=== PATIENT | male | born 1995 | race Caucasian/White ===

== ENCOUNTER 2016-08-12 14:44 | Emergency (ER) ==
[2016-08-12] MEDS ORDERED: SODIUM CHLORIDE 1,000 ML IV STA (14:57)
[2016-08-12 14:59] VITALS: BP 127/73; TEMP 97.3; BMI 25.6
--- NOTE | 2016-08-12 15:30 | ED.PDOC ---
General ED Provider: Dr. LANDRY ELIZONDO Chief Complaint: Shortness of Air Stated Complaint: Patient complains of feeling dizzy while he was doing a workout and got heart rate faster than anticipated. says he has been having some dull chest pain at night with a rapid heart rate for abot 2 months. says he feels like he is sort of "panicing" and gets light headed and feels like he is going to pass out, Admits to drinking a Preworkout which he states was the strongest one. Time Seen by Physician: 15:26 Mode of Arrival: Walk-In Information Source: Patient Exam Limitations: No limitations Nursing and Triage Documentation Reviewed and Agree: Yes Cardiovascular Complaint Exam - Palpitations Complaint/Exam Onset/Duration: 1 day Symptoms Are: Still present Timing: Constant Initial Severity: Severe Current Severity: Mild Character: Reports: Fast Aggravating: Reports: Medications (suppliment drink ) Alleviating: Reports: None Associated Signs and Symptoms: Reports: Lightheadedness, Dizziness Related Surgical History: Reports: None Cardiac Risk Factors: Reports: None Pulmonary Embolism Risk Factors: Reports: None Atrial Fibrillation Risk Factors: Reports: None Thyroid Exam: Normal Differential Diagnoses: AV Block, Pericarditis, Panic Disorder, Paroxysmal SVT Quality Indicators for AMI: EKG in 10min. Quality Indicator For Non-Traumatic Chest Pain/Syncope: EKG Performed Review of Systems - Review Of Systems Constitutional: Reports: No symptoms Eyes: Reports: No symptoms Ears, Nose, Mouth, Throat: Reports: No symptoms Respiratory: Reports: No symptoms Cardiac: Reports: Palpitations GI: Reports: No symptoms : Reports: No symptoms Musculoskeletal: Reports: No symptoms Skin: Reports: No symptoms Neurological: Reports: Anxiety Endocrine: Reports: No symptoms Hematologic/Lymphatic: Reports: No symptoms All Other Systems: Reviewed and Negative Past Medical History - Past Medical History Endocrine: Reports: None Cardiovascular: Reports: None Respiratory: Reports: None Hematological: Reports: None Gastrointestinal: Reports: None Genitourinary: Reports: None Neuro/Psych: Reports: None Musculoskeletal: Reports: None Cancer: Reports: None - Surgical History General Surgical History: Reports: None - Family History Family History: Reports: None - Social History Smoking Status: Never smoker Hx Substance Use: No Alcohol Screening: None - Immunizations Tetanus Shot up to Date: Yes Physical Exam - Physical Exam Appearance: Ill-appearing, No pain distress, Well-nourished Ill-appearing: Mild Eyes: BEBETO, EOMI, Conjunctiva clear ENT: Ears normal, Nose normal, Oropharynx normal Respiratory: Airway patent, Breath sounds clear, Breath sounds equal, Respirations nonlabored Cardiovascular: RRR, Pulses normal, No rub, No murmur GI/: Soft, Nontender, No masses, Bowel sounds normal, No Organomegaly Musculoskeletal: Normal strength, ROM intact, No edema, No calf tenderness Skin: Warm, Dry, Normal color Neurological: Sensation intact, Motor intact, Reflexes intact, Cranial nerves intact, Alert, Oriented Psychiatric: Anxious Interpretation - Dietary Director Rate: Normal Rhythm: Sinus Ectopy: PVCs (few), PACs (few) - EKG Interpretation Time of EKG #1: 15:08 Rate: Normal Rhythm: Sinus Ectopy: None [place]: NL ST Segment: Normal Critical Care Note - Critical Care Note Total Time (mins): 15 Course - Course Hematology/Chemistry: 08/12/16 15:25 08/12/16 15:25 Orders, Labs, Meds: Lab Review 08/12/16 08/12/16 15:25 15:50 WBC 12.75 H RBC 5.27 Hgb 15.6 Hct 44.1 MCV 83.7 MCH 29.6 MCHC 35.4 RDW Coeff of Jeffrey 12.7 Plt Count 230 Immature Gran % (Auto) 0.4 Neut % (Auto) 82.6 Lymph % (Auto) 10.0 [place] % (Auto) 5.5 Eos % (Auto) 1.3 Baso % (Auto) 0.2 Immature Gran # (Auto) 0.1 Neut # 10.6 H Lymph # 1.3 [place] # 0.7 Eos # 0.2 Baso # 0.0 Sodium 141 Potassium 4.4 Chloride 105 Carbon Dioxide 27 Anion Gap 13.4 BUN 14 Creatinine 0.91 Estimated GFR (MDRD) 103.00 BUN/Creatinine Ratio 15.38 Glucose 106 H Calcium 9.7 Magnesium 2.5 H Total Bilirubin 0.32 AST 19 ALT 28 Alkaline Phosphatase 76 Total Creatine Kinase 78 Troponin I < 0.0100 Total Protein 7.4 Albumin 4.4 Globulin 3.0 Albumin/Globulin Ratio 1.47 Urine Color Yellow Urine Clarity Clear Urine pH 8.5 Ur Specific Elim 1.015 Urine Protein Negative Urine Glucose (UA) Negative Urine Ketones Negative Urine Blood Negative Urine Nitrite Negative Urine Bilirubin Negative Urine Urobilinogen 0.2 Ur Leukocyte Esterase Negative Urine Opiates Screen Negative Ur Oxycodone Screen Negative Urine Methadone Screen Negative Ur Propoxyphene Screen Negative Ur Barbiturates Screen Negative U Tricyclic Antidepress Negative Ur Phencyclidine Scrn Negative Ur Amphetamine Screen Negative U Methamphetamines Scrn Negative U Benzodiazepines Scrn Negative Urine Cocaine Screen Negative U Cannabinoids Screen Negative Orders Category Date Time Status EKG-(ED ONLY) Stat CARDIO 08/12/16 14:57 Completed ED IV/MEDIPORT/POWERPORT .ONCE EMERGENCY 08/12/16 14:57 Active CBC W/ AUTO DIFF Stat LAB 08/12/16 15:25 Completed COMPREHENSIVE METABOLIC PANEL Stat LAB 08/12/16 15:25 Completed CREATINE KINASE Stat LAB 08/12/16 15:25 Completed DRUG SCREEN, URINE, RAPID Stat LAB 08/12/16 15:50 Completed MAGNESIUM Stat LAB 08/12/16 15:25 Completed TROPONIN I Stat LAB 08/12/16 15:25 Completed TSH [THYROID STIMULATING HORMONE] Stat LAB 08/12/16 15:25 Received URINALYSIS C & S IF INDICATED Stat LAB 08/12/16 15:50 Completed 0.9 % Sodium Chloride [Saline Flush] MEDS 08/12/16 14:57 Active 1 syr IVF PRN PRN Sodium Chloride 0.9% [Sodium Chloride] 1,000 ml MEDS 08/12/16 14:57 Active IV 125 mls/hr Medications Generic Name Dose Route Start Last Admin Trade Name Freq PRN Reason Stop Dose Admin Sodium Chloride 1,000 mls @ 125 mls/hr 08/12/16 14:57 08/12/16 15:41 Sodium Chloride IV 08/12/16 22:56 125 mls/hr .Q8H STA Administration Sodium Chloride 1 syr 08/12/16 14:57 Saline Flush IVF PRN PRN To flush IV Vital Signs: Temp Pulse Resp BP Pulse Ox 08/12/16 14:44 97.3 F L 94 H 18 127/73 98 JOHAN Risk Score JOHAN Risk Score: Risk Score Odds of by 30D 0 0.1 (0.1-0.2) 1 0.3 (0.2-0.3) 2 0.4 (0.3-0.5) 3 0.7 (0.6-0.9) 4 1.2 (1.0-1.5) 5 2.2 (1.9-2.6) 6 3.0 (2.5-3.6) 7 4.8 (3.8-6.1) Departure - Departure Time of Disposition: 17:02 Disposition: HOME SELF-CARE Discharge Problem: Palpitations Instructions: Palpitations (ED) Condition: Fair Pt referred to PMD for follow-up: Yes Additional Instructions: Avoid caffeinated products Push fluids Rest for few days then resume exercise gradually Follow up with PCP in 3 days. Allergies/Adverse Reactions: Allergies No Known Allergies Allergy (Unverified 08/12/16 14:52) Home Medications: Ambulatory Orders 1 [No Reported Medications] 08/12/16 Disposition Discussed With: Patient, Family
[2016-08-12 15:34] LABS: BASOPHILS % (AUTO) 0.2 % (0.0-3.0); EOSINOPHILS # (AUTO) 0.2 K/ul (0.0-0.7); EOSINOPHILS % (AUTO) 1.3 % (0.0-7.0); HEMATOCRIT 44.1 % (42.0-52.0); HEMOGLOBIN 15.6 g/dl (14.0-18.0); IMMATURE GRANULOCYTE % (AUTO) 0.4 % (0.0-5.0); LYMPHOCYTES # (AUTO) 1.3 K/uL (0.60-3.4); MEAN CORPUSCULAR HEMOGLOBIN 29.6 pg (27.0-31.0); MEAN CORPUSCULAR HGB CONC 35.4 (31.8-35.4); MEAN CORPUSCULAR VOLUME 83.7 fl (80.0-94.0); MONOCYTES # (AUTO) 0.7 K/uL (0.4-2.0); MONOCYTES % (AUTO) 5.5 (0-10); NEUTROPHILS # (AUTO) 10.6 K/ul (2.0-6.9); NEUTROPHILS % (AUTO) 82.6; PLATELET COUNT 230 10^3/uL (140-440); RED BLOOD COUNT 5.27 10^6/ul (4.70-6.10); WHITE BLOOD COUNT 12.75 K/ul (4.2-10.2)
[2016-08-12 15:57] LABS: ALANINE AMINOTRANSFERASE 28 U/L (12-78); ALBUMIN 4.4 g/dL (3.4-5.0); ALBUMIN/GLOBULIN RATIO 1.47; ALKALINE PHOSPHATASE 76 U/L (50-136); ANION GAP 13.4; ASPARTATE AMINO TRANSFERASE 19 U/L (15-37); BILIRUBIN,TOTAL 0.32 mg/dL (0.00-1.20); BLOOD UREA NITROGEN 14 mg/dL (7-18); BUN/CREATININE RATIO 15.38; CALCIUM 9.7 mg/dL (8.2-10.2); CARBON DIOXIDE 27 mmol/L (21-32); CHLORIDE 105 mmol/L (98-107); CREATINE KINASE 78 U/L; CREATININE 0.91 mg/dL (0.60-1.10); GLUCOSE 106 mg/dL (70-100); MAGNESIUM 2.5 mg/dL (1.7-2.2); POTASSIUM 4.4 mmol/L (3.5-5.1); SODIUM 141 mmol/L (136-145); TOTAL PROTEIN 7.4 g/dL (6.4-8.2)
[2016-08-12 16:05] LABS: ADD URINE MICROSCOPIC NO; BILIRUBIN,URINE Negative (NEGATIVE); KETONES,URINE Negative (NEGATIVE); LEUKOCYTE ESTERASE ,URINE Negative (NEGATIVE); NITRITE,URINE Negative (NEGATIVE); PH,URINE 8.5 (5-9); PROTEIN,URINE Negative (NEGATIVE); URINE, BLOOD Negative (NEGATIVE)
[2016-08-12 16:13] LABS: COCAIN SCREEN,URINE NEGATIVE (NEGATIVE)
== END 2016-08-12 17:33 | disposition home or self-care (01) ==
LOC: ED 14:44
DX: R00.2 Palpitations (principal); R42 Dizziness and giddiness; R07.9 Chest pain, unspecified
CPT/HCPCS: 36415; 80053; 80306; 81001; 82550; 83735; 84443; 84484; 85025; 93005; 93010; 96360; 96361; 99284

== ENCOUNTER 2016-08-28 14:25 | Emergency (ER) ==
[2016-08-28 14:31] VITALS: BP 122/77; TEMP 98.3; BMI 25.9
[2016-08-28 15:04] LABS: BASOPHILS % (AUTO) 0.1 % (0.0-3.0); EOSINOPHILS # (AUTO) 0.2 K/ul (0.0-0.7); HEMATOCRIT 42.2 % (42.0-52.0); HEMOGLOBIN 14.8 g/dl (14.0-18.0); IMMATURE GRANULOCYTE % (AUTO) 0.3 % (0.0-5.0); LYMPHOCYTES # (AUTO) 1.8 K/uL (0.60-3.4); LYMPHOCYTES % (AUTO) 23.8 (10.0-50.0); MEAN CORPUSCULAR HEMOGLOBIN 29.5 pg (27.0-31.0); MEAN CORPUSCULAR HGB CONC 35.1 (31.8-35.4); MEAN CORPUSCULAR VOLUME 84.2 fl (80.0-94.0); MONOCYTES # (AUTO) 0.7 K/uL (0.4-2.0); NEUTROPHILS # (AUTO) 4.7 K/ul (2.0-6.9); NEUTROPHILS % (AUTO) 63.8; PLATELET COUNT 199 10^3/uL (140-440); RED BLOOD COUNT 5.01 10^6/ul (4.70-6.10); WHITE BLOOD COUNT 7.36 K/ul (4.2-10.2)
[2016-08-28 15:43] LABS: COCAIN SCREEN,URINE NEGATIVE (NEGATIVE)
[2016-08-28 15:45] LABS: ALBUMIN 4.1 g/dL (3.4-5.0); ALBUMIN/GLOBULIN RATIO 1.41; BILIRUBIN,TOTAL 0.28 mg/dL (0.00-1.20); BUN/CREATININE RATIO 11.65; CALCIUM 9.4 mg/dL (8.2-10.2); CREATININE 1.03 mg/dL (0.60-1.10)
--- NOTE | 2016-08-28 16:18 | ED.PDOC ---
General ED Provider: Dr. RORY ACOSTA Chief Complaint: Behavioral Complaint Stated Complaint: anxiety Time Seen by Physician: 14:30 (feels anxious ) Mode of Arrival: Walk-In Information Source: Patient Exam Limitations: No limitations Nursing and Triage Documentation Reviewed and Agree: Yes Psychological Complaint Exam - Psychiatric Complaint/Exam Patient Complains Of: Present: Other (anxiety). Absent: Depression, Suicidal thoughts, Suicidal gestures Onset/Duration: 2 weeks Symptoms Are: Resolved Timing: Intermittent Episodes Lasting: Days Initial Severity: Mild Current Severity: None Aggravating: Reports: None Associated Signs And Symptoms: Denies: Hostile, Confused, Hallucinating, Paranoid behavior, Sleep disturbance, Appetite change Related History: Denies: Suicidal thoughts, Suicidal plan, Suicidal gestures, Homicidal thoughts, Homicidal plan, Homicidal gestures, Prior attempts, Recent stressors, Drug ingestion Completed Suicide Risk Factors: None Patient In Custody Of Police: No Social Withdrawal Present: No Social Isolation Present: No Prior Suicide Attempt: No Injury From Prior Suicide Attempt: No Related Surgical History: Reports: None Patient Uncooperative For Exam: No Appearance: Present: Clean Thought Process: Present: Logical Insight: Present: Good Memory: Intact Judgement: Normal Danger To Others: No Differential Diagnoses: Anxiety Review of Systems - Review Of Systems Constitutional: Reports: No symptoms Eyes: Reports: No symptoms Ears, Nose, Mouth, Throat: Reports: No symptoms Respiratory: Reports: No symptoms Cardiac: Reports: No symptoms GI: Reports: No symptoms : Reports: No symptoms Musculoskeletal: Reports: No symptoms Skin: Reports: No symptoms Neurological: Reports: Anxiety Endocrine: Reports: No symptoms Hematologic/Lymphatic: Reports: No symptoms All Other Systems: Reviewed and Negative Past Medical History - Past Medical History Endocrine: Reports: None Cardiovascular: Reports: None Respiratory: Reports: None Hematological: Reports: None Gastrointestinal: Reports: None Genitourinary: Reports: None Neuro/Psych: Reports: None Musculoskeletal: Reports: None Cancer: Reports: None - Surgical History General Surgical History: Reports: None - Family History Family History: Reports: None - Social History Smoking Status: Never smoker Hx Substance Use: No Alcohol Screening: None Physical Exam - Physical Exam Appearance: Well-appearing, No pain distress, Well-nourished Eyes: BEBETO, EOMI, Conjunctiva clear ENT: Ears normal, Nose normal, Oropharynx normal Respiratory: Airway patent, Breath sounds clear, Breath sounds equal, Respirations nonlabored Cardiovascular: RRR, Pulses normal, No rub, No murmur GI/: Soft, Nontender, No masses, Bowel sounds normal, No Organomegaly Musculoskeletal: Normal strength, ROM intact, No edema, No calf tenderness Skin: Warm, Dry, Normal color Neurological: Sensation intact, Motor intact, Reflexes intact, Cranial nerves intact, Alert, Oriented Psychiatric: Affect appropriate, Mood appropriate Critical Care Note - Critical Care Note Total Time (mins): 0 Course - Course Hematology/Chemistry: 08/28/16 14:55 08/28/16 14:55 Orders, Labs, Meds: Lab Review 08/28/16 08/28/16 14:55 15:10 WBC 7.36 RBC 5.01 Hgb 14.8 Hct 42.2 MCV 84.2 MCH 29.5 MCHC 35.1 RDW Coeff of [place] 12.8 Plt Count 199 Immature Gran % (Auto) 0.3 Neut % (Auto) 63.8 Lymph % (Auto) 23.8 [place] % (Auto) 9.0 Eos % (Auto) 3.0 Baso % (Auto) 0.1 Immature Gran # (Auto) 0.0 Neut # 4.7 Lymph # 1.8 [place] # 0.7 Eos # 0.2 Baso # 0.0 Sodium 139 Potassium 4.0 Chloride 104 Carbon Dioxide 26 Anion Gap 13.0 BUN 12 Creatinine 1.03 Estimated GFR (MDRD) 89.00 BUN/Creatinine Ratio 11.65 Glucose 100 Calcium 9.4 Total Bilirubin 0.28 AST 21 ALT 40 Alkaline Phosphatase 75 Total Protein 7.0 Albumin 4.1 Globulin 2.9 Albumin/Globulin Ratio 1.41 TSH 1.343 Free T4 0.96 Urine Opiates Screen Negative Ur Oxycodone Screen Negative Urine Methadone Screen Negative Ur Propoxyphene Screen Negative Ur Barbiturates Screen Negative U Tricyclic Antidepress Negative Ur Phencyclidine Scrn Negative Ur Amphetamine Screen Negative U Methamphetamines Scrn Negative U Benzodiazepines Scrn Negative Urine Cocaine Screen Negative U Cannabinoids Screen Negative Orders Category Date Time Status EKG-(ED ONLY) Stat CARDIO 08/28/16 14:36 Completed CBC W/ AUTO DIFF Stat LAB 08/28/16 14:55 Completed COMPREHENSIVE METABOLIC PANEL Stat LAB 08/28/16 14:55 Completed FREE T4 (FREE THYROXINE) Stat LAB 08/28/16 14:55 Completed THYROID STIMULATING HORMONE Stat LAB 08/28/16 14:55 Completed URINE DRUG SCREEN (RAPID FOR ED) [DRUG SCREEN, URINE, LAB 08/28/16 15:10 Completed RAPID] Stat Vital Signs: Temp Pulse Resp BP Pulse Ox 08/28/16 14:25 98.3 F 95 H 20 122/77 98 Departure - Departure Time of Disposition: 16:17 Disposition: HOME SELF-CARE Discharge Problem: Anxiety Instructions: Anxiety (ED), Anxiolysis in Adults (ED) Condition: Good Pt referred to PMD for follow-up: No Additional Instructions: Please call your Family Physician as soon as possible to schedule a follow-up appointment. Allergies/Adverse Reactions: Allergies No Known Allergies Allergy (Verified 08/28/16 14:32) Home Medications: Ambulatory Orders 1 [No Reported Medications] 08/12/16 Disposition Discussed With: Patient
== END 2016-08-28 16:37 | disposition home or self-care (01) ==
LOC: ED 14:25
DX: F41.9 Anxiety disorder, unspecified (principal)
CPT/HCPCS: 36415; 80053; 80306; 84439; 84443; 85025; 93005; 93010; 99283

== ENCOUNTER 2016-10-03 11:03 | Outpatient (CLI) ==
--- NOTE | 2016-10-03 11:47 | DI ---
EXAM: CHEST FRONTAL AND LATERAL VIEWS HISTORY: Chest pain upon breathing. COMPARISON: None FINDINGS: Heart size and mediastinal contour within normal limits. No acute infiltrates. [place] l vascularity with no pleural fluid or pneumothorax. The bony thorax has no acute finding. IMPRESSION: No acute process.
== END 2016-10-03 11:04 | disposition home or self-care (01) ==
LOC: RAD 11:03
PROVIDERS: ATTEND Nurse Practitioner Family
DX: R07.1 Chest pain on breathing (principal)

== ENCOUNTER 2016-11-08 15:51 | Emergency (ER) ==
[2016-11-08 16:03] VITALS: BP 118/73; TEMP 98.4; BMI 25.3
--- NOTE | 2016-11-08 16:12 | ED.PDOC ---
General ED Provider: Dr. DANIELLE BELLO JR Chief Complaint: Chest Pain Stated Complaint: has had intermittent chest pain past 4 months--last episode occured while at work--states he does not do strenuous work--was walking doing checks at work when had left sided chest pain--is concerned that it might be heart related--episodes brief in nature--has seen md in past for this problem has recently been treated for costochondritis. [ End ]. [ End ]98.4 83 16 96% 118/73 01/08. anti-inflammatory--acid reflux. tight stabbing Time Seen by Physician: 16:10 Mode of Arrival: Walk-In Information Source: Patient Exam Limitations: No limitations Primary Care Provider: BENSON SUMNER Nursing and Triage Documentation Reviewed and Agree: No Review of Systems - Review Of Systems Constitutional: Reports: Malaise Eyes: Reports: No symptoms Ears, Nose, Mouth, Throat: Reports: No symptoms Respiratory: Reports: No symptoms Cardiac: Reports: Chest pain GI: Reports: No symptoms : Reports: No symptoms Musculoskeletal: Reports: Muscle pain Skin: Reports: No symptoms Neurological: Reports: No symptoms Endocrine: Reports: No symptoms Hematologic/Lymphatic: Reports: No symptoms All Other Systems: Other Past Medical History - Past Medical History Endocrine: Reports: None Cardiovascular: Reports: None Respiratory: Reports: None Hematological: Reports: None Gastrointestinal: Reports: None Genitourinary: Reports: None Neuro/Psych: Reports: None Musculoskeletal: Reports: None Cancer: Reports: None - Surgical History General Surgical History: Reports: None - Family History Family History: Reports: None - Social History Smoking Status: Never smoker Hx Substance Use: No Alcohol Screening: None Physical Exam - Physical Exam Appearance: Well-appearing Pain Distress: Moderate Eyes: BEBETO, EOMI, Conjunctiva clear ENT: Ears normal, Nose normal, Oropharynx normal Neck: Supple Respiratory: Airway patent, Breath sounds clear, Breath sounds equal, Respirations nonlabored Cardiovascular: RRR, Pulses normal, No rub, No murmur GI/: Soft, Nontender, No masses, Bowel sounds normal, No Organomegaly Musculoskeletal: Normal strength, ROM intact, No edema, No calf tenderness ( tender left chest wall) Skin: Warm, Dry, Normal color Neurological: Sensation intact, Motor intact, Reflexes intact, Cranial nerves intact, Alert, Oriented Psychiatric: Affect appropriate, Mood appropriate Critical Care Note - Critical Care Note Total Time (mins): 0 Course - Course Hematology/Chemistry: 11/08/16 16:15 11/08/16 16:15 Orders, Labs, Meds: Lab Review 11/08/16 16:15 WBC 7.88 RBC 4.81 Hgb 14.2 Hct 40.2 L MCV 83.6 MCH 29.5 MCHC 35.3 RDW Coeff of Jeffrey 13.1 Plt Count 207 Immature Gran % (Auto) 0.1 Neut % (Auto) 68.0 Lymph % (Auto) 20.6 [place] % (Auto) 9.6 Eos % (Auto) 1.6 Baso % (Auto) 0.1 Immature Gran # (Auto) 0.0 Neut # 5.4 Lymph # 1.6 [place] # 0.8 Eos # 0.1 Baso # 0.0 Sodium 141 Potassium 3.6 Chloride 105 Carbon Dioxide 28 Anion Gap 11.6 BUN 13 Creatinine 1.26 H Estimated GFR (MDRD) 71.00 BUN/Creatinine Ratio 10.31 Glucose 115 H Calcium 9.3 Total Bilirubin 0.31 AST 14 L ALT 21 Alkaline Phosphatase 67 Total Creatine Kinase 93 Troponin I < 0.0100 B-Natriuretic Peptide 11 Total Protein 6.7 Albumin 4.3 Globulin 2.4 Albumin/Globulin Ratio 1.79 Orders Category Date Time Status EKG-(ED ONLY) Stat CARDIO 11/08/16 16:11 Completed B-TYPE NATRIURETIC PEPTIDE Stat LAB 11/08/16 16:15 Completed CBC W/ AUTO DIFF Stat LAB 11/08/16 16:15 Completed COMPREHENSIVE METABOLIC PANEL Stat LAB 11/08/16 16:15 Completed CREATINE KINASE Stat LAB 11/08/16 16:15 Completed TROPONIN I Stat LAB 11/08/16 16:15 Completed CHEST, 1V AP ONLY Stat RADS 11/08/16 16:11 Completed Vital Signs: Temp Pulse Resp BP Pulse Ox 11/08/16 15:52 98.4 F 83 16 118/73 96 JOHAN Risk Score JOHAN Risk Score: Risk Score Odds of by 30D 0 0.1 (0.1-0.2) 1 0.3 (0.2-0.3) 2 0.4 (0.3-0.5) 3 0.7 (0.6-0.9) 4 1.2 (1.0-1.5) 5 2.2 (1.9-2.6) 6 3.0 (2.5-3.6) 7 4.8 (3.8-6.1) Departure - Departure Time of Disposition: 16:52 Disposition: HOME SELF-CARE Discharge Problem: Chest pain Instructions: Impaired Kidney Function (ED) Condition: Good Pt referred to PMD for follow-up: Yes Additional Instructions: creatinine is slightly elevated discuss renal function with PMD may be necessary to recheck periodically heart studies are all normal recommend try ranitidine at full dose(300mg a day) or prilosec at full dose ( 40mg a day) if concerned about stomach pain appears to be muscular, daily light exercise will improve muscular pain (such as 20 to 40 minutes of walking ) follow up PMD one week recheck Prescriptions: Omeprazole [Prilosec] 40 mg PO QDAC #30 capsule. Allergies/Adverse Reactions: Allergies No Known Allergies Allergy (Verified 11/08/16 16:01) Home Medications: Ambulatory Orders Omeprazole [Prilosec] 40 mg PO QDAC #30 capsule. 11/08/16
[2016-11-08 16:23] LABS: BASOPHILS % (AUTO) 0.1 % (0.0-3.0); EOSINOPHILS # (AUTO) 0.1 K/ul (0.0-0.7); EOSINOPHILS % (AUTO) 1.6 % (0.0-7.0); HEMATOCRIT 40.2 % (42.0-52.0); HEMOGLOBIN 14.2 g/dl (14.0-18.0); IMMATURE GRANULOCYTE % (AUTO) 0.1 % (0.0-5.0); LYMPHOCYTES # (AUTO) 1.6 K/uL (0.60-3.4); LYMPHOCYTES % (AUTO) 20.6 (10.0-50.0); MEAN CORPUSCULAR HEMOGLOBIN 29.5 pg (27.0-31.0); MEAN CORPUSCULAR HGB CONC 35.3 (31.8-35.4); MEAN CORPUSCULAR VOLUME 83.6 fl (80.0-94.0); MONOCYTES # (AUTO) 0.8 K/uL (0.4-2.0); MONOCYTES % (AUTO) 9.6 (0-10); NEUTROPHILS # (AUTO) 5.4 K/ul (2.0-6.9); PLATELET COUNT 207 10^3/uL (140-440); RED BLOOD COUNT 4.81 10^6/ul (4.70-6.10); WHITE BLOOD COUNT 7.88 K/ul (4.2-10.2)
--- NOTE | 2016-11-08 16:38 | DI ---
EXAM: CHEST FRONTAL VIEW HISTORY: Chest pain. COMPARISON: 10/03/2016 FINDINGS: Heart size and mediastinum remain within normal limits. Lungs are free of infiltrate. No consolidation or pleural fluid. There is no pneumothorax or acute bony finding. IMPRESSION: Findings within normal limits.
[2016-11-08 16:47] LABS: ALANINE AMINOTRANSFERASE 21 U/L (12-78); ALBUMIN 4.3 g/dL (3.4-5.0); ALBUMIN/GLOBULIN RATIO 1.79; ALKALINE PHOSPHATASE 67 U/L (50-136); ANION GAP 11.6; ASPARTATE AMINO TRANSFERASE 14 U/L (15-37); BILIRUBIN,TOTAL 0.31 mg/dL (0.00-1.20); BLOOD UREA NITROGEN 13 mg/dL (7-18); BUN/CREATININE RATIO 10.31; CALCIUM 9.3 mg/dL (8.2-10.2); CARBON DIOXIDE 28 mmol/L (21-32); CHLORIDE 105 mmol/L (98-107); CREATINE KINASE 93 U/L; CREATININE 1.26 mg/dL (0.60-1.10); GLUCOSE 115 mg/dL (70-100); POTASSIUM 3.6 mmol/L (3.5-5.1); SODIUM 141 mmol/L (136-145); TOTAL PROTEIN 6.7 g/dL (6.4-8.2)
== END 2016-11-08 17:05 | disposition home or self-care (01) ==
LOC: ED 15:51
DX: R07.9 Chest pain, unspecified (principal); R79.89 Other specified abnormal findings of blood chemistry
CPT/HCPCS: 36415; 80053; 82550; 83880; 84484; 85025; 93005; 93010; 99283

== ENCOUNTER 2017-07-11 12:44 | Outpatient (CLI) ==
--- NOTE | 2017-07-11 13:29 | CT ---
EXAM: CT of the chest without contrast History: Short of breath and chest wall pain. Comparison: Chest radiograph 11/08/2016 Technique: Multiplanar CT images through the thorax were obtained without the administration of IV c ontrast. 3-D reconstructions were also acquired. Findings: Heart size is normal. No pericardial effusion. Great vessels are unremarkable. No pathol ogically enlarged thoracic lymph nodes. No consolidation. No pleural fluid and no pneumothorax. 2 mm incidental nodule within the right upper lobe. No suspicious lung masses or lung nodules. Within the visualized upper abdomen, no acute findings. No acute osseous abnormalities. Impression: No acute intrathoracic process.
== END 2017-07-11 12:45 | disposition home or self-care (01) ==
LOC: RAD 12:44
PROVIDERS: ATTEND Nurse Practitioner Family
DX: R07.89 Other chest pain (principal); R06.02 Shortness of breath; S29.9XXD Unspecified injury of thorax, subsequent encounter

== ENCOUNTER 2017-11-28 12:12 | Outpatient (CLI) ==
--- NOTE | 2017-11-28 13:45 | US ---
EXAM: Scrotal ultrasound. History: Scrotal pain. Technique: Multiple sonographic images through the scrotum were obtained. Color duplex Doppler was used to interrogate vascular flow. Findings: The right testicle measures 5.8 cm x 2.8 cm x 3.4 cm. Blood flow is documented within the right testi emily. No right intratesticular masses. The right epididymis is not hyperemic. No right varicocele. Trace left hydrocele. The left testicle measures 5.6 cm x 2.5 cm x 3.5 cm. Blood flow was documented within the left testi emily. No left intratesticular masses. The left epididymis is not hyperemic. No left varicocele. Tra ce left hydrocele. Impression: 1. Normal bilateral testicles. 2. Trace bilateral hydroceles.
== END 2017-11-28 12:13 | disposition home or self-care (01) ==
LOC: RAD 12:12
PROVIDERS: ATTEND Nurse Practitioner Family
DX: N50.82 Scrotal pain (principal); R39.11 Hesitancy of micturition; N39.8 Other specified disorders of urinary system